=== PATIENT | male | born 1935 | race Caucasian/White ===

== ENCOUNTER 2018-08-12 15:52 | Inpatient (IN) | payer BC ==
[~2018-08-12] VITALS: Ht 162.6 cm; Wt 79.6 kg
[2018-08-12 15:52] VITALS: BP_SYST 166
[2018-08-12] MEDS ORDERED: ALBUTEROL SULFATE 0.083% 2.5 MG/3 ML VIAL.NEB INH ONE (16:00)
[2018-08-12] MEDS ORDERED: LEVOFLOXACIN 500 MG/D5W 100 ML IV ONE (16:00)
[2018-08-12 16:19] LABS: EOSINOPHILS # (AUTO) 0.4 K/uL (0.0-0.4); HEMOGLOBIN 13.1 g/dL (14.0-18.0); MEAN CORPUSCULAR HEMOGLOBIN 28 pg (27-31); MEAN CORPUSCULAR VOLUME 90 fL (79.0-98.0); MONOCYTES # (AUTO) 0.9 K/uL (0.0-1.0)
[2018-08-12] MEDS ORDERED: IPRATROPIUM BROM 0.5 MG/2.5 ML VIAL.NEB (ATROVENT) INH ONE (16:20)
[2018-08-12 16:22] LABS: BASOPHILS % (AUTO) 0.5 % (0.0-2.0); HEMATOCRIT 41.5 % (36-54); LYMPHOCYTES # (AUTO) 1.2 K/uL (1.0-5.5); LYMPHOCYTES % (AUTO) 13.8 % (20.5-51.5); MEAN CORPUSCULAR HGB CONC 32 % (32-36); MONOCYTES % (AUTO) 10.7 % (1.7-9.3); NEUTROPHILS # (AUTO) 6.2 K/uL (1.8-7.7); RED BLOOD CELL COUNT(AUTO) 4.63 MIL/uL (4.2-6.2); RED CELL DISTRIBUTION WIDTH 13.4 % (9.0-15.0); WHITE BLOOD COUNT (AUTO) 8.7 K/uL (4.8-10.8)
[2018-08-12 16:24] LABS: INR 1.1 (0.80-1.20)
[2018-08-12 16:25] LABS: ANION GAP 7 (5-15); CALCIUM 8.7 mg/dL (8.4-11.0); CHLORIDE 98 mmol/L (98-107); CREATININE 0.95 mg/dL (0.55-1.30); GLUCOSE 113 mg/dL (70-99); POTASSIUM 3.4 mmol/L (3.5-5.1); SODIUM SERUM 138 mmol/L (136-145); UREA NITROGEN, BLOOD 16 mg/dL (8-21)
[2018-08-12 16:30] LABS: ALANINE AMINOTRANSFERASE 10 U/L (12-78); ASPARTATE AMINOTRANSFERASE 11 U/L (10-37); TOTAL BILIRUBIN 0.3 mg/dL (0.0-1.0)
[2018-08-12 16:36] LABS: PLATELET COUNT (AUTO) 638 K/uL (130-430)
[2018-08-12] MEDS ORDERED: OMEP-268 PO (16:53)
[2018-08-12] MEDS ORDERED: GABA-531 PO (16:53)
[2018-08-12] MEDS ORDERED: ALPR0.25 PO (16:53)
[2018-08-12] MEDS ORDERED: FURO-150 PO (16:53)
[2018-08-12] MEDS ORDERED: TAMS-11 PO (16:53)
[2018-08-12] MEDS ORDERED: POTASSIUM CHLORIDE 20 MEQ TAB.PRT.SR PO ONE (17:15)
[2018-08-12 17:21] LABS: BILIRUBIN,URINE NEGATIVE (NEGATIVE); CLARITY/URINE CLEAR (CLEAR); COLOR,URINE YELLOW (YELLOW); GLUCOSE,URINE NEGATIVE (NEGATIVE); KETONES,URINE NEGATIVE (NEGATIVE); LEUKOCYTE ESTERASE ,URINE NEGATIVE (NEGATIVE); NITRITE, URINE NEGATIVE (NEGATIVE); PROTEIN URINE NEGATIVE (NEGATIVE)
[2018-08-12 17:22] LABS: BLOOD, URINE TRACE (NEGATIVE)
[2018-08-12 17:23] LABS: BACTERIA,URINE MODERATE /HPF (None Seen); HYALINE CASTS, URINE 0-10 /LPF (None Seen); WBC,URINE 0-3 /HPF (0-3)
[2018-08-12] MEDS ORDERED: NACL 0.9% 1,000 ML IV SCH (17:30)
[2018-08-12] MEDS ORDERED: ACETAMINOPHEN 325 MG TABLET PO PRN (17:30)
[2018-08-12] MEDS ORDERED: ONDANSETRON HCL 4 MG/2 ML VIAL IVP PRN (17:30)
[2018-08-12] MEDS ORDERED: IPRATROPIUM/ALBUTEROL SULFATE 3 ML AMPUL.NEB (DUONEB) INH PRN (17:30)
[2018-08-12 17:59] VITALS: BP_SYST 115
[2018-08-12 20:00] VITALS: BP_SYST 146
[2018-08-13 00:49] VITALS: BP_SYST 142
[2018-08-13] MEDS: HYDROcodone/ACETAMIN 5-325 MG TAB (NORCO/ VICODIN) PO PRN ×2 (04:10→12:15)
[2018-08-13 06:54] LABS: BASOPHILS # (AUTO) 0.1 K/uL (0.0-0.2); BASOPHILS % (AUTO) 0.8 % (0.0-2.0); EOSINOPHILS # (AUTO) 0.3 K/uL (0.0-0.4); EOSINOPHILS % (AUTO) 3.5 % (0.0-4.0); HEMATOCRIT 34.9 % (36-54); HEMOGLOBIN 11.5 g/dL (14.0-18.0); LYMPHOCYTES # (AUTO) 1.4 K/uL (1.0-5.5); LYMPHOCYTES % (AUTO) 17.1 % (20.5-51.5); MEAN CORPUSCULAR HEMOGLOBIN 29 pg (27-31); MEAN CORPUSCULAR HGB CONC 33 % (32-36); MEAN CORPUSCULAR VOLUME 89 fL (79.0-98.0); MONOCYTES # (AUTO) 1.1 K/uL (0.0-1.0); MONOCYTES % (AUTO) 12.8 % (1.7-9.3); NEUTROPHILS # (AUTO) 5.5 K/uL (1.8-7.7); NEUTROPHILS % (AUTO) 65.8 % (40.0-70.0); PLATELET COUNT (AUTO) 493 K/uL (130-430); RED BLOOD CELL COUNT(AUTO) 3.93 MIL/uL (4.2-6.2); RED CELL DISTRIBUTION WIDTH 13.2 % (9.0-15.0); WHITE BLOOD COUNT (AUTO) 8.4 K/uL (4.8-10.8)
[2018-08-13 07:13] LABS: ALANINE AMINOTRANSFERASE 8 U/L (12-78); ALBUMIN 2.5 g/dL (3.4-4.8); ANION GAP 4 (5-15); ASPARTATE AMINOTRANSFERASE 15 U/L (10-37); CALCIUM 8.5 mg/dL (8.4-11.0); CHLORIDE 101 mmol/L (98-107); GLUCOSE 100 mg/dL (70-99); POTASSIUM 5.2 mmol/L (3.5-5.1); SODIUM SERUM 136 mmol/L (136-145); TOTAL BILIRUBIN 0.4 mg/dL (0.0-1.0); UREA NITROGEN, BLOOD 16 mg/dL (8-21)
[2018-08-13] MEDS: LEVOFLOXACIN 500 MG/D5W 100 ML IV SCH (08:40)
[2018-08-13] MEDS: ENOXAPARIN SODIUM 40 MG/0.4 ML SYRINGE SUBCUT SCH (08:41)
[2018-08-13] MEDS ORDERED: FUROSEMIDE 20 MG/2 ML VIAL IVP ONE (09:30)
[2018-08-13] MEDS: MORPHINE 2 MG/ML INJ. SYRINGE IVP PRN ×2 (14:27→20:57)
[2018-08-13 15:31] VITALS: BP_SYST 143
[2018-08-13 16:16] VITALS: BP_SYST 142
[2018-08-13 19:00] VITALS: BP_SYST 133
[2018-08-13 20:00] VITALS: BP_SYST 133
[2018-08-14] VITALS (7 sets, daily range): BP systolic 110–170
[2018-08-14] MEDS: MORPHINE 2 MG/ML INJ. SYRINGE IVP PRN ×3 (01:01→22:03)
[2018-08-14] MEDS ORDERED: hydrALAZINE HCL 20 MG/ML VIAL IVP PRN (05:30)
[2018-08-14] MEDS ORDERED: METOPROLOL TARTRATE 25 MG TABLET PO ONE (05:30)
[2018-08-14] MEDS ORDERED: METOPROLOL TARTRATE 25 MG TABLET ONE (05:50)
[2018-08-14] MEDS ORDERED: METOPROLOL TARTRATE 25 MG TABLET PO SCH ×2 (06:00→09:00)
[2018-08-14 06:31] LABS: ANION GAP 5 (5-15); CALCIUM 8.1 mg/dL (8.4-11.0); CHLORIDE 100 mmol/L (98-107); CREATININE 0.94 mg/dL (0.55-1.30); GLUCOSE 97 mg/dL (70-99); POTASSIUM 4.1 mmol/L (3.5-5.1); SODIUM SERUM 137 mmol/L (136-145); UREA NITROGEN, BLOOD 18 mg/dL (8-21)
[2018-08-14 06:37] LABS: LACTATE DEHYDROGENASE 165 U/L (85-227)
[2018-08-14] MEDS: ENOXAPARIN SODIUM 40 MG/0.4 ML SYRINGE SUBCUT SCH (09:20)
[2018-08-14] MEDS: FUROSEMIDE 20 MG/2 ML VIAL IVP SCH (09:21)
[2018-08-14] MEDS: LEVOFLOXACIN 500 MG/D5W 100 ML IV SCH (09:22)
[2018-08-14] MEDS: METOPROLOL TARTRATE 25 MG TABLET PO SCH (09:22)
[2018-08-14] MEDS ORDERED: FUROSEMIDE 40 MG/4 ML VIAL IVP ONE (10:45)
[2018-08-15 06:46] LABS: BASOPHILS % (AUTO) 0.3 % (0.0-2.0); EOSINOPHILS % (AUTO) 9.4 % (0.0-4.0); HEMATOCRIT 35.3 % (36-54); HEMOGLOBIN 11.5 g/dL (14.0-18.0); LYMPHOCYTES # (AUTO) 1.3 K/uL (1.0-5.5); LYMPHOCYTES % (AUTO) 12.1 % (20.5-51.5); MEAN CORPUSCULAR HEMOGLOBIN 29 pg (27-31); MEAN CORPUSCULAR HGB CONC 33 % (32-36); MEAN CORPUSCULAR VOLUME 88 fL (79.0-98.0); MONOCYTES # (AUTO) 1.2 K/uL (0.0-1.0); MONOCYTES % (AUTO) 10.7 % (1.7-9.3); NEUTROPHILS # (AUTO) 7.5 K/uL (1.8-7.7); NEUTROPHILS % (AUTO) 67.5 % (40.0-70.0); PLATELET COUNT (AUTO) 434 K/uL (130-430)
[2018-08-15 07:15] LABS: ALANINE AMINOTRANSFERASE 11 U/L (12-78); ALBUMIN 2.5 g/dL (3.4-4.8); ANION GAP 7 (5-15); ASPARTATE AMINOTRANSFERASE 16 U/L (10-37); CALCIUM 8.6 mg/dL (8.4-11.0); CHLORIDE 97 mmol/L (98-107); GLUCOSE 97 mg/dL (70-99); POTASSIUM 3.8 mmol/L (3.5-5.1); SODIUM SERUM 134 mmol/L (136-145); TOTAL BILIRUBIN 0.5 mg/dL (0.0-1.0); UREA NITROGEN, BLOOD 25 mg/dL (8-21)
[2018-08-15 07:43] VITALS: BP_SYST 139; BP_SYST 168
[2018-08-15] MEDS: METOPROLOL TARTRATE 25 MG TABLET PO SCH (09:00)
[2018-08-15] MEDS: LEVOFLOXACIN 500 MG/D5W 100 ML IV SCH (09:15)
[2018-08-15] MEDS: FUROSEMIDE 20 MG/2 ML VIAL IVP SCH (09:16)
[2018-08-15] MEDS: ENOXAPARIN SODIUM 40 MG/0.4 ML SYRINGE SUBCUT SCH (09:18)
[2018-08-15] MEDS: MORPHINE 2 MG/ML INJ. SYRINGE IVP PRN ×3 (09:19→20:40)
[2018-08-15 12:35] VITALS: BP_SYST 98
[2018-08-15 16:31] VITALS: BP_SYST 114
[2018-08-15 19:00] VITALS: BP_SYST 105
[2018-08-15 20:00] VITALS: BP_SYST 105
[2018-08-15] MEDS: HYDROcodone/ACETAMIN 5-325 MG TAB (NORCO/ VICODIN) PO PRN (22:20)
[2018-08-16 00:28] VITALS: BP_SYST 137
[2018-08-16] MEDS: MORPHINE 2 MG/ML INJ. SYRINGE IVP PRN ×4 (00:37→16:59)
[2018-08-16] MEDS: HYDROcodone/ACETAMIN 5-325 MG TAB (NORCO/ VICODIN) PO PRN (02:29)
[2018-08-16 07:12] LABS: BASOPHILS # (AUTO) 0.1 K/uL (0.0-0.2); BASOPHILS % (AUTO) 0.8 % (0.0-2.0); EOSINOPHILS % (AUTO) 10.1 % (0.0-4.0); HEMATOCRIT 34.3 % (36-54); HEMOGLOBIN 11.3 g/dL (14.0-18.0); LYMPHOCYTES # (AUTO) 1.6 K/uL (1.0-5.5); LYMPHOCYTES % (AUTO) 15.4 % (20.5-51.5); MEAN CORPUSCULAR HEMOGLOBIN 29 pg (27-31); MEAN CORPUSCULAR HGB CONC 33 % (32-36); MEAN CORPUSCULAR VOLUME 88 fL (79.0-98.0); MONOCYTES # (AUTO) 1.1 K/uL (0.0-1.0); MONOCYTES % (AUTO) 10.8 % (1.7-9.3); NEUTROPHILS # (AUTO) 6.3 K/uL (1.8-7.7); NEUTROPHILS % (AUTO) 62.9 % (40.0-70.0); PLATELET COUNT (AUTO) 440 K/uL (130-430); RED BLOOD CELL COUNT(AUTO) 3.89 MIL/uL (4.2-6.2); RED CELL DISTRIBUTION WIDTH 13.8 % (9.0-15.0); WHITE BLOOD COUNT (AUTO) 10.1 K/uL (4.8-10.8)
[2018-08-16 07:19] LABS: ANION GAP 5 (5-15); CALCIUM 8.3 mg/dL (8.4-11.0); CHLORIDE 98 mmol/L (98-107); CREATININE 1.21 mg/dL (0.55-1.30); GLUCOSE 104 mg/dL (70-99); POTASSIUM 3.5 mmol/L (3.5-5.1); SODIUM SERUM 134 mmol/L (136-145); UREA NITROGEN, BLOOD 40 mg/dL (8-21)
[2018-08-16 07:32] LABS: ALANINE AMINOTRANSFERASE 12 U/L (12-78); ALBUMIN 2.5 g/dL (3.4-4.8); ASPARTATE AMINOTRANSFERASE 21 U/L (10-37); TOTAL BILIRUBIN 0.3 mg/dL (0.0-1.0)
[2018-08-16 08:30] VITALS: BP_SYST 100
[2018-08-16] MEDS: LEVOFLOXACIN 500 MG/D5W 100 ML IV SCH (08:48)
[2018-08-16] MEDS: ENOXAPARIN SODIUM 40 MG/0.4 ML SYRINGE SUBCUT SCH (08:48)
[2018-08-16] MEDS: FUROSEMIDE 20 MG/2 ML VIAL IVP SCH (08:49)
[2018-08-16] MEDS: METOPROLOL TARTRATE 25 MG TABLET PO SCH (08:49)
[2018-08-16 12:17] VITALS: BP_SYST 92
[2018-08-16 16:46] VITALS: BP_SYST 116
[2018-08-16 18:07] VITALS: BP_SYST 116
== END 2018-08-16 18:35 | DRG 177 ==
LOC: SED 15:52 → STU 17:25
PROVIDERS: ADMIT Internal Medicine; ATTEND Internal Medicine
DX: J69.0 Pneumonitis due to inhalation of food and vomit (principal); J96.01 Acute respiratory failure with hypoxia; J44.1 Chronic obstructive pulmonary disease with (acute) exacerbation; J44.0 Chronic obstructive pulmonary disease with (acute) lower respiratory infection; I69.351 Hemiplegia and hemiparesis following cerebral infarction affecting right dominant side; J84.9 Interstitial pulmonary disease, unspecified; I11.0 Hypertensive heart disease with heart failure; I50.9 Heart failure, unspecified; M79.7 Fibromyalgia; Z87.891 Personal history of nicotine dependence
CPT/HCPCS: 36415; 36600; 71045; 71250-TC; 74230; 80048; 80053; 81000-TC; 82803-TC; 83605; 83615-TC; 83880; 84484; 85025; 85610-TC; 85651-TC; 86710; 87040-TC; 87086; 92610-GN; 92611-GN; 93005; 93306; 94640; 94760; 96365; 97110-GP; 97116-GP; 97530-GP; 99285; J1650; J1940; J1956; J2270; J2405; J7030; J7613